=== PATIENT | female | born 2000 | race Two or more races ===

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

== ENCOUNTER 2021-01-03 01:18 | Emergency (ER) | payer OTHER ==
[~2021-01-03] VITALS: Ht 157.5 cm; Wt 66.7 kg
[2021-01-03] MEDS ORDERED: KETO10TA2 PO (05:06)
[2021-01-03] MEDS ORDERED: ACETAMINOPHEN650 M2 PO (05:29)
== END 2021-01-03 05:44 | disposition home or self-care (01) ==
LOC: ER 01:18
DX: R10.2 Pelvic and perineal pain (principal)

== ENCOUNTER 2021-09-29 22:44 | Emergency (ER) | payer OTHER ==
[~2021-09-29] VITALS: Ht 160 cm; Wt 64.9 kg
[~2021-09-29 22:44] MED LIST: ACETAMINOPHEN650 M2 PO; KETO10TA2 PO
[2021-09-30] MEDS ORDERED: OSEL75CA PO (04:02)
[2021-09-30] MEDS ORDERED: ZITHROMAX500 MG PO (04:02)
== END 2021-09-30 04:16 | disposition home or self-care (01) ==
LOC: ER 22:44
DX: B34.9 Viral infection, unspecified (principal); Z11.52 Encounter for screening for COVID-19

== ENCOUNTER 2021-11-01 08:24 | Emergency (ER) | payer OTHER ==
[~2021-11-01] VITALS: Ht 157.5 cm; Wt 65.8 kg
[~2021-11-01 08:24] MED LIST changes: +OSEL75CA PO; +ZITHROMAX500 MG PO
[2021-11-01] MEDS ORDERED: MORGIDOX100 MG PO (11:50)
[2021-11-01] MEDS ORDERED: FLUCONAZOLE150 MG PO (11:50)
== END 2021-11-01 12:04 | disposition home or self-care (01) ==
LOC: ER 08:24
DX: A64 Unspecified sexually transmitted disease (principal); N76.0 Acute vaginitis

== ENCOUNTER 2022-11-01 10:01 | Emergency (ER) | payer OTHER ==
[~2022-11-01] VITALS: Ht 157.5 cm; Wt 65.8 kg
[~2022-11-01 10:01] MED LIST changes: +FLUCONAZOLE150 MG PO; +MORGIDOX100 MG PO
[2022-11-01] MEDS ORDERED: METRONIDAZOLE500 MG PO (14:14)
[2022-11-01] MEDS ORDERED: PEPCID AC20 MG PO (14:14)
[2022-11-01] MEDS ORDERED: INTESTINEX680 M1 PO (14:14)
[2022-11-01] MEDS ORDERED: CIPRO500 MG PO (14:14)
== END 2022-11-01 15:35 | disposition home or self-care (01) ==
LOC: ER 10:01
DX: R19.7 Diarrhea, unspecified (principal); Z20.822 Contact with and (suspected) exposure to COVID-19

== ENCOUNTER 2023-06-20 09:37 | Emergency (ER) | payer OTHER ==
[~2023-06-20] VITALS: Ht 160 cm; Wt 63.5 kg
[~2023-06-20 09:37] MED LIST changes: +CIPRO500 MG PO; +INTESTINEX680 M1 PO; +METRONIDAZOLE500 MG PO; +PEPCID AC20 MG PO
== END 2023-06-20 18:37 | disposition home or self-care (01) ==
LOC: ER 09:37
PROVIDERS: Emergency Medicine
DX: K52.89 Other specified noninfective gastroenteritis and colitis (principal)

== ENCOUNTER 2023-10-06 08:54 | Emergency (ER) | payer OTHER ==
[~2023-10-06] VITALS: Ht 162.6 cm; Wt 63.5 kg
== END 2023-10-06 12:32 | disposition home or self-care (01) ==
LOC: ER 08:54
DX: J10.1 Influenza due to other identified influenza virus with other respiratory manifestations (principal); Z20.822 Contact with and (suspected) exposure to COVID-19

== ENCOUNTER 2024-01-10 19:55 | Emergency (ER) | payer OTHER ==
[~2024-01-10] VITALS: Ht 160 cm; Wt 62.1 kg
[2024-01-10] MEDS ORDERED: FAMOTIDINE/PF 20 MG/2 ML VIAL IV PUSH STA (21:23)
[2024-01-10] MEDS ORDERED: ONDANSETRON HCL 2 MG/ML VIAL IV STA (21:24)
[2024-01-10 21:45] LABS: HEMATOCRIT 40.3 % (36.0-45.00); HEMOGLOBIN 13.7 g/dL (12.0-15.00); MEAN CELL VOLUME 91.2 fL (80.00-100.00); MEAN CORPUSCULAR HEMOGLOBIN 31.1 pg (27.00-32.0); MEAN CORPUSCULAR HGB CONC 34.1 g/dl (32.0-36.0); PLATELET COUNT 165 K/uL (150-450); RED BLOOD COUNT 4.42 M/uL (4.00-6.00); RED CELL DISTRIBUTION WIDTH 12.2 % (11.5-14.5)
[2024-01-10 22:10] LABS: ALBUMIN 3.9 gm/dL (3.4-5.0); BILIRUBIN TOTAL 0.73 mg/dL (0.3-1.2); CALCIUM 9.3 mg/dL (8.5-10.1); CREATININE SERUM 0.92 mg/dL (0.55-1.02); GFR 75.65; GLOBULINA 3.4 G/DL (2.4-3.5); POTASSIUM 3.87 mEq/L (3.5-5.1); TOTAL PROTEIN 7.3 gm/dL (6.4-8.2)
[2024-01-10 23:55] LABS: PH,URINE 6.5 (5.0-8.0); URINE APPEARANCE Cloudy; URINE BILIRRUBIN Negative (NEGATIVE); URINE BLOOD Negative; URINE COLOR Yellow; URINE GLUCOSE Negative (NEGATIVE); URINE LEUKOCYTE Trace; URINE NITRATE Negative; URINE PROTEIN Negative (NEGATIVE)
[2024-01-10 23:59] LABS: URINE BACTERIA 2547.6 uL (0.0-1933); URINE EPITHELIAL CELLS 56.7 uL (0.0-38.8); URINE RBC 17.8 uL (0.0-20.8); URINE WBC 55.6 uL (0.0-23.2)
[2024-01-11] MEDS ORDERED: PEPCID AC20 MG PO (00:06)
[2024-01-11] MEDS ORDERED: CIPRO500 MG PO (00:06)
== END 2024-01-11 00:35 | disposition home or self-care (01) ==
LOC: ER → EDBD 20:23 → ER 20:23
PROVIDERS: General Practice
DX: N39.0 Urinary tract infection, site not specified (principal); K29.70 Gastritis, unspecified, without bleeding; Z87.09 Personal history of other diseases of the respiratory system